=== PATIENT | female | born 1990 | race African-American/Black ===

== ENCOUNTER → 2020-01-16 | Outpatient (CLI) | payer OTHER ==
[~2020-01-16] MED LIST: OXYC1TAB15 PO
== END | disposition home or self-care (01) ==
LOC: LAB 13:54
PROVIDERS: ATTEND Surgery
DX: Z01.818 Encounter for other preprocedural examination (principal); Z11.59 Encounter for screening for other viral diseases; K64.4 Residual hemorrhoidal skin tags
CPT/HCPCS: U0003-CS

== ENCOUNTER 2020-01-19 06:39 | Day surgery (SDC) | payer OTHER ==
[~2020-01-19 06:39] MED LIST changes: +ACETAMINOPHEN 500 MG TABLET PO ONE; -OXYC1TAB15 PO; +ceFAZolin SODIUM IV Push 1 GM VIAL. IVP ONE
[2020-01-19] MEDS ORDERED: BUPIVACAINE-EPI 0.25%-1:200000 MPF 30 ML VIAL. ONE (06:56)
[2020-01-19] MEDS ORDERED: NEOMY/BACITR/POLYMYXIN OINT PACKET. TP ONE (06:57)
[2020-01-19] MEDS ORDERED: ONDANSETRON PF 4 MG/2 ML VIAL. IV PRN (07:00)
[2020-01-19] MEDS ORDERED: PROCHLORPERAZINE 10 MG/2 ML VIAL. IV PRN (07:00)
[2020-01-19] MEDS ORDERED: MORPHINE SULFATE 2 MG/ML VIAL. IV PRN (07:00)
[2020-01-19] MEDS ORDERED: LIDOCAINE 1% PF 2 ML VIAL. ID PRN (07:00)
[2020-01-19] MEDS ORDERED: IV RINGERS,LACTATED 1000ML 1,000 ML IV SCH (07:00)
[2020-01-19] MEDS ORDERED: HYDROmorphone 2 MG/ML VIAL IV PRN (07:00)
[2020-01-19] MEDS ORDERED: fentaNYL PF VIAL 100 MCG/2 ML VIAL IV PRN ×2 (07:00)
[2020-01-19] MEDS ORDERED: fentaNYL PF VIAL 100 MCG/2 ML VIAL ONE (07:04)
[2020-01-19] MEDS ORDERED: ROCURONIUM 50 MG/5 ML VIAL. ONE (07:04)
[2020-01-19] MEDS ORDERED: LIDOCAINE 2% PF 5 ML VIAL. ONE (07:04)
[2020-01-19] MEDS ORDERED: PROPOFOL 10 MG/ML (20ML) VIAL. IV ONE (07:04)
[2020-01-19] MEDS ORDERED: SCOPOLAMINE 1.5MG PATCH. TD ONE ×3 (07:12→08:00)
[2020-01-19] MEDS ORDERED: SEVOFLURANE 31 TO 60 MINUTES. IH ONE (07:33)
[2020-01-19] MEDS ORDERED: DEXAMETHASONE SOD PHOS 4 MG/ML VIAL ONE (07:33)
[2020-01-19] MEDS ORDERED: ONDANSETRON PF 4 MG/2 ML VIAL. ONE (07:33)
[2020-01-19] MEDS ORDERED: ePHEDrine PF IN SALINE 50 MG/10 ML SYRINGE. IV ONE (07:34)
--- NOTE | 2020-01-19 07:46 | PDOC4 ---
Operative Note Operative Note Date: January 182019 at 744 Preoperative diagnosis: Internal/external hemorrhoids Postoperative diagnosis: Same Procedure: Hemorrhoidectomy Surgeon: Eriberto Specimen: Hemorrhoids Dictation: Patient is 29-year-old female is had difficulty with hemorrhoids bleeding pain etc. Procedure of hemorrhoidectomy was explained to the patient detail was benefits were also discussed including bleeding infection alternatives to this procedure also discussed with patient who seemed to understand and gave both verbal and written consent to have the procedure performed. Patient was taken to the operating room placed in the supine position general anesthesia was initiated once patient was sleeping intubated she was then placed in lithotomy positioning and peritoneum was prepped and draped usual sterile fashion using Betadine scrub and solution. On exam of the rectum she had 2 internal and external hemorrhoids at the 6:00 and 9:00 positioning this area is injected with quarter percent Marcaine with epinephrine the hemorrhoid at the 9 o'clock position was grasped with an Allis clamp and ex cised using the harmonic scalpel. Similarly the hemorrhoid at the 6 o'clock position was grasped with Allis clamp and excised with the harmonic scalpel. Hemostasis was deemed appropriate and the area was dressed with antibiotic ointment 4 x 4's and ABD pad. Patient was repositioned in the supine positioning awakened and extubated in the operating room taken to recovery in stable condition all sponge instrument needle counts listed as correct estimated blood loss 5 mL. FLACA DIMAS MD Jan 19, 2020 07:46
--- NOTE | 2020-01-19 07:48 | DISCH ---
DISCHARGE INSTRUCTIONS Condition on Discharge Condition on Discharge: Stable Activity After Discharge Activity Instructions for Disc: Avoid exertion Diet after Discharge Diet after Discharge: Regular Wound Incision Care Other wound/incision instructi: May shower in 24 hours no soaking in a tub for 1 week Contacting the after DC Call your doctor for: If your condition worsens Follow-Up Follow up with: Dr. Dimas in 2 weeks FLACA DIMAS MD Jan 19, 2020 07:48
[2020-01-19] MEDS ORDERED: oxyCODONE/APAP 5/325 1 TAB TABLET PO ONE (08:15)
[2020-01-19] MEDS ORDERED: OXYC1TAB15 PO (08:30)
[2020-01-19 09:07] VITALS: BP 104/60
--- NOTE | 2020-01-20 17:07 | PATHOLOGY ---
[facility] Accession Number: [id number] . 01 Material submitted: . hemorrhoids - HEMORRHOID . 01 Clinical history: . External hemorrhoid . 02 Diagnosis: Segments of skin and anorectal mucosa and underlying fibromuscular tissue, hemorrhoidectomy: - Hemorrhoids. . (JP:mm; 01/20/2020) [facility] 01/20/2020 1655 Local . 02 Electronically signed: . Randy Patrick MD, Pathologist NPI- [id number] . 01 Gross description: . The specimen is received in formalin, labeled "Vickie Cooper, hemorrhoids". Received are two segments of epithelial covered tissue ranging in size from 2.4 x 1.6 x 1.0 to 2.7 x 1.8 x 1.5 cm in greatest dimensions. Sectioning reveals pink-red to moderately vascularized cut surfaces. No distinct nodules or lesions are noted grossly. The specimen is submitted representatively in cassette A1. ([facility]; 01/19/2020) QA/[facility] 01/19/2020 1721 Local . 02 Pathologist provided ICD-10: K64.9 . 02 CPT . 288915 Specimen Comment: A courtesy copy of this report has been sent to [phone] Specimen Comment: Report sent to Performed at: [facility] [address], [place] [id number] MD Tyrel Miller MD Phone: [phone] Performed at: [facility] [address], [place] [id number] MD Randy Patrick MD Phone: [phone]
== END 2020-01-19 09:40 | disposition home or self-care (01) ==
LOC: SURG 06:39 → EDUNIT# 07:30 → SURG 09:40
PROVIDERS: ATTEND Surgery
DX: K64.4 Residual hemorrhoidal skin tags (principal); Z79.899 Other long term (current) drug therapy
CPT/HCPCS: 46255; 81025; J0690; J1100; J2405; J2704; J3010; J3490; 88304; A7015; A4461